=== PATIENT | male | born 1950 | race Caucasian/White ===

== ENCOUNTER 2017-12-21 08:45 | Outpatient (CLI) | payer MEDICARE ==
[~2017-12-21] VITALS: Ht 86.4 cm; Wt 93.2 kg
--- NOTE | ~2017-12-21 | HEMODYNAMI ---
PATIENT:RUSSEL PAYNE MEDICAL RECORD: [id number] : 46 LOCATION:[facility] ADMISSION DATE: 12/21/17 Generatedon:12/21/201711:20 Patient name: RUSSEL PAYNE Patient #: [id number] SSN: D OB: 1950 Date of study: 12/21/2017 Page: Of Hemodynamic Procedure Report Patient Data Patient Demographics Procedure consent was obtained First Name: RUSSEL Gender: Male Last Name: ELMER : 1950 [facility] Initial: RENA Age: 67 year(s) Patient #: [id number] Race: Unknown Additional ID: [id number] Contact details Address: [address] [place] [address] State: [place] City: [place] Zip code: [address] Past Medical History Allergies: No known allergies Admission Admission Data Admission Date: 12/21/2017 Admission Time: 8:45 Lab Results Lab Result Date: 12/21/2017 Lab Result Time: 0:00 Biochemistry Name Units Result Min Max BUN mg/dl 21 --(----)-* 7 18 Creatinine mg/dl 0.9 --(-*--)-- 0.6 1.3 CBC Name Units Result Min Max Hemoglobin g/dl 13.8 --(*---)-- 13.5 17.5 Procedure Procedure Types Cath Procedure Diagnostic Procedure LHC LHC w/Coronaries Procedure Description Procedure Date Procedure Date: 12/21/2017 Procedure Start Time: 11:10 Procedure End Time: 11:17 Procedure Staff Name Function Jimi Lees MD Performing Physician Lien Adames RT Monitor Kassidy Chavez RT Scrub Sanjuana Peguero RN Nurse Procedure Data Cath Procedure Fluoroscopy Diagnostic fluoroscopy Total fluoroscopy Time: 1 time: 1 min min Diagnostic fluoroscopy Total fluoroscopy dose: 478 dose: 478 mGy mGy Contrast Material Contrast Material Type Amount (ml) Isovue 300 50 Entry Location Entry Primary Successful Side Size Upsize Upsize Entry Closure Stallings ccessful Closure Location (Fr) 1 (Fr) 2 (Fr) Remarks Device Remarks Radial Right 6 Fr Mechanical artery Short Compression Estimated blood loss: 5 ml Diagnostic catheters Device Type Used For End Catheter Placement DIAGNOSTIC Grace 110cm 5 Multi-vessel Fr catheter ([id number]) Angiography Procedure Complications No complications Procedure Medications Medication Administration Route Dosage Oxygen NC 2 l/min Lidocaine 2% added to field 20 Heparin Flush Bag added to field 2 bags (1000units/500ml NS) 0.9% NaCl I.V. 100 ml/hr Versed I.V. 2 mg Versed I.V. 2 mg Fentanyl I.V. 50 mcg Radial Cocktail I.A. 1 syringe (Verapomil 2mg/Nitro 400mcg/Heparin 1500units) Versed I.V. 1 mg Fentanyl I.V. 50 mcg Fentanyl I.V. 50 mcg Hemodynamics Rest HGB: 13.8 (g/dl) Heart Rate: 61 (bpm) Pressure Samples Time Site Value (mmHg) Purpose Heart Use Rate(bpm) 11:13 LV 61/39,16 Snapshot 116 Snapshots Pre Cath Intra NCS Post Cath Vital Signs Time Heart Resp SPO2 etCO2 NIBP (mmHg) Rhythm Pain Sedation Rate (ipm) (%) (mmHg) Status Level (bpm) 10:15:28 60 19 96 0 132/76(112) NSR 0 (11) 10(A) , No pain 10:19:40 60 14 96 35 123/75(103) NSR 0 (11) 10(A) , No pain 10:23:54 60 20 94 15.6 120/64(97) NSR 0 (11) 10(A) , No pain 10:28:04 60 13 96 27.6 108/73(88) NSR 0 (11) 10(A) , No pain 10:32:14 58 13 96 29.8 116/70(94) NSR 0 (11) 10(A) , No pain 10:36:26 59 14 97 35.8 118/70(93) NSR 0 (11) 10(A) , No pain 10:40:40 59 14 96 36.5 127/68(102) NSR 0 (11) 10(A) , No pain 10:44:54 59 12 98 18.6 118/72(99) NSR 0 (11) 10(A) , No pain 10:49:06 58 13 98 25.3 109/75(92) NSR 0 (11) 10(A) , No pain 10:53:16 58 13 98 34.3 111/68(94) NSR 0 (11) 10(A) , No pain 10:57:22 60 13 97 36.5 112/78(105) NSR 0 (11) 10(A) , No pain 11:01:33 60 14 98 33.5 118/67(92) NSR 0 (11) 10(A) , No pain 11:05:45 59 16 97 18.6 117/61(95) NSR 0 (11) 10(A) , No pain 11:10:34 59 16 94 41.7 118/63(109) NSR 0 (11) 9(A) , No pain 11:15:00 62 15 94 43.3 105/59(75) NSR 0 (11) 9(A) , No pain 11:18:50 61 14 95 0 117/66(97) NSR 0 (11) 10(A) , No pain Medications Time Medication Route Dose Verified Delivered Reason Notes Effectiveness by by 10:20:53 Oxygen NC 2 l/min Jimi Buffie used for Yoana Peguero RN procedure 10:21:01 Lidocaine 2% added 20ml Jimi Krause for local to vial Yoana Lees MD anesthetic field 10:21:06 Heparin Flush added 2 bags Jimi Krause used for Bag to Yoana Lees MD procedure (1000units/500ml field NS) 10:21:15 0.9% NaCl I.V. 100 Jimi Wei Per ml/hr Yoana Peguero RN physician 10:52:43 Versed I.V. 2 mg Jimi Wei for anxiety Yoana Peguero RN 11:07:10 Versed I.V. 2 mg Jimi Wei for sedation Yoana Peguero RN 11:07:18 Fentanyl I.V. 50 mcg Jimi Ruizie for sedation Yoana Peguero RN 11:12:56 Radial Cocktail I.A. 1 Jimi Krause for (Verapomil syringe Yoana Lees MD vasodilation 2mg/Nitro 400mcg/Heparin 1500units) 11:13:00 Versed I.V. 1 mg Jimi Wei for sedation Yoana Peguero RN 11:13:04 Fentanyl I.V. 50 mcg Jimi Wei for sedation Yoana Peguero RN 11:15:23 Fentanyl I.V. 50 mcg Jimi Wei for sedation Yoana Peguero RN Procedure Log Time Note 9:58:05 Informed consent obtained and on chart 9:58:32 Kassidy Chavez RT(R) sent for patient. Start room use. 9:58:33 Time tracking: Regular hours (M-F 7:00 - 5:00) 9:58:38 Plan of Care:Hemodynamics will remain stable., Cardiac rhythm will remain stable., Comfort level will be maintained., Respiratory function will remain adequate., Patient/ family verbilizes understanding of procedure., Procedure tolerated without complication., Recovers from procedure without complications.. 10:06:42 Patient received from Pre/Post Procedure Room to CCL 2 Alert and oriented. Tansferred to table in Supine position. 10:06:43 Warm blankets applied, and augusta hugger turned on for patient comfort. 10:06:43 Correct patient and procedure confirmed by team. 10:06:44 ECG and BP/O2 sat monitors applied to patient. 10:14:24 Vital chart was started 10:14:26 Baseline sample Acquired. 10:14:31 Rhythm: sinus rhythm 10:14:33 Full Disclosure recording started 10:14:48 H&P Date Dictated: 12/05/2017 Within 30 days and on chart., H&P Addendum completed by physician on day of procedure. (MUST COMPLETE FOR ALL OUTPATIENTS). 10:14:50 Pre-procedure instructions explained to patient. 10:14:52 Family in waiting room. 10:14:53 Patient NPO since Midnight. 10:15:02 Patient allergic to No known allergies 10:15:06 Is the patient allergic to Iodine/contrast media? No. 10:15:07 Was the patient premedicated? Yes 10:15:09 Is patient on blood thinner?Yes 10:15:11 ACC The patient was administered the following blood thiners within the last 24 hours: ACCPlavix 10:15:13 Patient diabetic? No. 10:15:17 Snore? Yes 10:15:19 Sleep apnea? No 10:15:23 Dentures? No ? 10:15:30 Patient pain scale 0/10 ?. 10:15:37 IV patent on arrival in left forearm with 0.9% NaCl at [facility]. 10:16:05 Lab Result : BUN 21 mg/dl 10:16:05 Lab Result : Creatinine 0.9 mg/dl 10:16:05 Lab Result : Hemoglobin 13.8 g/dl 10:16:10 Lab results completed and on chart. 10:16:13 Right Radial & Right Groin area was prepped with chlora-prep and draped in sterile fashion 10:16:14 Alarms reviewed by R. N. 10:16:15 Sharps counted by scrub and verified by R.N. 10:16:16 Physician paged 10:20:53 Oxygen 2 l/min NC was administered by Sanjuana Peguero RN; used for procedure; 10:21:01 Lidocaine 2% 20ml vial added to field was administered by Jimi Lees MD; for local anesthetic; 10:21:06 Heparin Flush Bag (1000units/500ml NS) 2 bags added to field was administered by Jimi Lees MD; used for procedure; 10:21:15 0.9% NaCl 100 ml/hr I.V. was administered by Sanjuana Peguero RN; Per physician; 10:52:43 Versed 2 mg I.V. was administered by Sanjuana Peguero RN; for anxiety; 10:52:55 Zero performed for pressure channel P1 11:05:49 Physician arrived 11:05:50 --------ALL STOP TIME OUT------ 11:05:50 Final Timeout: patient, procedure, and site verified with staff and physician. All members of the team are in agreement. 11:05:53 Right Radial & Right Groin site verified by team. 11:05:58 Physical assessment completed. ASA score P 2 - A patient with mild systemic disease as per Jimi Lees MD. 11:06:01 Sedation plan: IV Moderate Sedation Medication:Versed, Fentanyl 11:06:07 Use device set Radial Dx or PCI 11:06:08 ACIST Syringe (76593) opened to sterile field. 11:06:08 Medline Cath Pack ([id number]) opened to sterile field. 11:06:09 Bag Decanter (2002S) opened to sterile field. 11:06:10 DIAGNOSTIC WIRE .035 260cm J wire (747459) opened to sterile field. 11:06:10 ACIST Hand Control (68393) opened to sterile field. 11:06:11 ACIST Manifold (76303) opened to sterile field. 11:06:11 Tegaderm 4 x 4 (1626W) opened to sterile field. 11:06:12 MBrace Wrist Support ([id number]) opened to sterile field. 11:06:21 SHEATH 6Fr Prelude Radial ([id number]) opened to sterile field. 11:07:10 Versed 2 mg I.V. was administered by Sanjuana Peguero RN; for sedation; 11:07:18 Fentanyl 50 mcg I.V. was administered by Sanjuana Peguero RN; for sedation; 11:10:50 Procedure started. 11:10:56 Local anesthetic to right radial artery with Lidocaine 2% by Jimi Lees MD.INITIAL ACCESS ONLY 11:11:05 A 6 Fr Short sheath was inserted into the Right Radial artery 11:12:00 A DIAGNOSTIC Grace 110cm 5 Fr catheter ([id number]) was advanced over the wire and used for Multi-vessel Angiography. 11:12:56 Radial Cocktail (Verapomil 2mg/Nitro 400mcg/Heparin 1500units) 1 syringe I.A. was administered by Jimi Lees MD; for vasodilation; 11:13:00 Versed 1 mg I.V. was administered by Sanjuana Peguero RN; for sedation; 11:13:04 Fentanyl 50 mcg I.V. was administered by Sanjuana Peguero RN; for sedation; 11:13:38 LV hemodynamics recorded. 11:13:41 LV gram done using WILSON 11:13:43 Injector settings: Ml/sec: 5, Volume: 15, 11:13:48 EF : 60 % 11:14:11 LCA angiography performed. 11:14:13 Injector settings: Ml/sec: 3, Volume: 6, 11:15:23 Fentanyl 50 mcg I.V. was administered by Sanjuana Peguero RN; for sedation; 11:15:38 RCA angiography performed. 11:15:42 Injector settings: Ml/sec: 3, Volume: 6, 11:15:46 Catheter removed. 11:15:49 TR BAND Standard ([id number]) opened to sterile field. 11:15:59 Sheath removed intact; hemostasis achieved with Mechanical Compression to the Right Radial artery. 11:16:02 Procedure ended.(Physican Out) 11:16:20 Fluoroscopy time 01.00 minutes. 11:16:24 Fluoroscopy dose: 478 mGy 11:16:24 Flurop Dose total: 478 11:16:35 Contrast amount:Isovue 300 50ml. 11:16:56 Sharps counted by scrub and verified by R.N. 11:16:59 TR band inflated with 10cc of air. 11:17:01 Insertion/operative site no bleeding no hematoma. 11:17:07 Post right radial artery:stable 11:17:08 Post Procedure Pulses reassessed and unchanged 11:17:11 Post procedure rhythm: unchanged. 11:17:14 Estimated blood loss: 5 ml 11:17:15 Post procedure instruction explained to patient.Patient verbalizes understanding. 11:17:16 Patient needs reinforcement of post procedure teaching. 11:17:39 Procedure type changed to Cath procedure, Diagnostic procedure, LHC, LHC w/Coronaries 11:17:40 Procedure and supply charges have been captured, reviewed, submitted and are correct. 11:17:44 Procedure Complication : No complications 11:17:47 Vital chart was stopped 11:17:47 See physician's report for complete and final results. 11:17:50 Report given to Pre/Post Procedure Room. 11:17:53 Patient transfered to Pre/Post Procedure Room with Stretcher. 11:17:56 Procedure ended. 11:17:56 Full Disclosure recording stopped 11:18:00 End room use (Document Last) Device Usage Item Name Manufacture Quantity Catalog Number Hospital Part Current M inimal Lot# / Charge Number Stock Stock Serial# Code ACIST Syringe Acist 1 26173 423338 467282 254125 2 0 (56226) [employer] Medline Cath Cardinal 1 [id number] 496168 99984 224305 5 [facility] ([id number]) Bag Decanter Microtek 1 080831 61345 245649 5 () [employer] Inc. DIAGNOSTIC WIRE [facility] [place] 1 670005 262928 520009 248396 3 0 .035 260cm J wire (749885) ACIST Hand Acist 1 26184 504191 720008 929267 5 Control (60719) [employer] ACIST Manifold Acist 1 52629 824810 459361 779571 5 (07775) [employer] Tegaderm 4 x 4 3M 1 1626W 760299 394110 525019 5 (1626W) MBrace Wrist Advanced 1 140-0250-00 540312 26801 194629 5 Support Vascular ([id number]) Dynamics SHEATH 6Fr Merit 1 [id number] 311419 242668 300217 5 Prelude Radial Medical ([id number]) DIAGNOSTIC Terumo 1 40-6005 409755 048417 765741 5 Grace 110cm 5 Fr catheter (509274) TR BAND Terumo 1 [id number] 186658 887406 952163 4 0 Standard ([id number]) Signature Audit [place] Stage Time Signature Unsigned Intra-Procedure 12/21/2017 Lien Adames 11:19:58 AM RT(R) Signatures Monitor : Lien Adames RT Signature : Date : Time : [place] [id number] [place] [address]
--- NOTE | ~2017-12-21 | OP ---
PATIENT NAME: RUSSEL PAYNE MEDICAL RECORD: [id number] :46 LOCATION:D.CAT ADMISSION DATE: SURGEON: ANA ROSA BRIDGES MD DATE OF OPERATION: 12/21/2017 PROCEDURES: 1. Left heart catheterization. 2. Selective coronary angiography. 3. Left ventriculogram. INDICATION: Angina and coronary artery disease. PROCEDURE IN DETAIL: After informed consent was obtained and after a detailed description of risks, benefits as well as alternative therapies, the patient elected to proceed with angiogram and heart catheterization. The right radial area was prepped and draped in normal sterile fashion. Right radial artery was cannulated via modified negative with placement of 5-Kiswahili sheath. All catheters exchanged through this sheath. FINDINGS: The left ventriculogram was performed in standard 30-degree WILSON view, reveals good cardiac wall motion throughout the segments. Overall ejection fraction estimated 60%. SELECTIVE CORONARY ANGIOGRAPHY: 1. Left main showed no significant angiographic disease. 2. Left anterior descending has previously placed stent that is widely patent with no significant restenosis. No disease elsewise at the LAD or its branches. 3. Left circumflex has previously placed stent that is widely patent with no significant restenosis. No disease elsewise at the left circumflex or its branches. 4. Right coronary artery has moderate irregularities, but no flow-limiting stenosis. OVERALL IMPRESSION: Wide patency of the previously placed stents, no disease elsewise. Continue medical management of the coronary artery disease and cardiac risk factors. TRANSINT:[id number] Voice Confirmation ID: [id number] DOCUMENT ID: [id number] ANA ROSA BRIDGES MD at 0956 CC: [id number] DICTATION DATE: 12/21/17 1120 CEMENT [place]ON MAINTENANCE: 12/21/17 1358 DEP CLI 12/21/17 [place] [id number] [place] [id number]
[~2017-12-21 08:45] MED LIST: BAYER CHEWABLE81 MG PO; BETAPACE 80 MG80 MG PO; LEXAPRO20 MG PO; LIPITOR20 MG PO; MULTI-DAY VITAM1 TAB PO; PLAVIX75 MG; ZESTORETIC 20/11 TAB PO
[2017-12-21] MEDS ORDERED: LISINOPRIL-HCTZ1 T11 PO (08:55)
[2017-12-21] MEDS ORDERED: FEXOFENADINE H180 MG PO (08:56)
[2017-12-21] MEDS ORDERED: CELEBREX200 MG PO (08:57)
[2017-12-21 09:13] LABS: BASOPHILS 0.8 % (0-2); EOSINOPHILS 8.8 % (0-7); HEMATOCRIT 41.1 % (42.0-54.0); HEMOGLOBIN 13.8 g/dL (13.5-17.5); IMMATURE GRANULOCYTES 0.2 % (0-5); LYMPHOCYTES 12.4 % (15-50); MCH 31.2 pg (26.0-34.0); MCHC 33.6 g/dL (31.0-37.0); MCV 92.8 fL (80.0-100.0); MEAN PLATELET VOLUME 9.4 fL (7.4-10.4); MONOCYTES 10.4 % (2-11); NEUTROPHILS 67.4 % (40-80); PLATELET COUNT 224 10x3/uL (130-400); RBC 4.43 10x6/uL (4.20-6.10); RDW 13.6 % (11.5-14.5)
[2017-12-21 09:18] VITALS: BP 127/70; Ht 86.4 cm; Wt 93.2 kg
[2017-12-21 09:33] LABS: CALC OSMOLALITY 278 mosm/kg (275-300); CALCIUM 9.2 mg/dL (8.5-10.1); CARBON DIOXIDE 26.1 mmol/L (21.0-32.0); CHLORIDE - SERUM 104 mmol/L (98-107); CREATININE - SERUM 0.9 mg/dL (0.6-1.3); GLUCOSE 106 mg/dL (74-106); POTASSIUM - SERUM 4.5 mmol/L (3.5-5.1); SODIUM 138 mmol/L (136-145); UREA NITROGEN 21 mg/dL (7-18); eGFR NON AFRICAN AMERICAN 89 mL/min (90-120)
== END 2017-12-21 13:45 | disposition home or self-care (01) ==
LOC: D.CATH 08:45
PROVIDERS: Internal Medicine Interventional Cardiology
DX: I25.119 Atherosclerotic heart disease of native coronary artery with unspecified angina pectoris (principal); Z95.5 Presence of coronary angioplasty implant and graft